=== PATIENT | male | born 1980 | race American Indian/Alaskan Native ===

== ENCOUNTER 2018-02-05 15:18 | Outpatient (CLI) | payer MEDICARE ==
[2018-02-05 15:32] LABS: Bilirubin,Urine NEG (Negative); Blood,Urine NEG (Negative); Color,Urine Yellow (Yellow); Protein,Urine <15 mg/dL mg/dL (Negative); Urobilinogen,Urine < 2.0 mg/dL (<2.0)
[2018-02-05 16:02] LABS: BUN/Creatinine Ratio 14; Blood Urea Nitrogen 13 mg/dL (9-20); Calcium 8.8 mg/dL (8.4-10.2); Hemolysis Index 5
== END 2018-02-05 15:19 | disposition home or self-care (01) ==
LOC: LAB 15:18
PROVIDERS: ATTEND Internal Medicine Nephrology
DX: Z48.22 Encounter for aftercare following kidney transplant (principal); Z94.0 Kidney transplant status; Z79.899 Other long term (current) drug therapy
CPT/HCPCS: 36415; 80048; 81001

== ENCOUNTER 2019-01-14 09:20 | Outpatient (CLI) | payer MEDICARE ==
[2019-01-14 10:04] LABS: Bilirubin,Urine NEG (Negative); Blood,Urine NEG (Negative); Color,Urine Yellow (Yellow); Mucus,Urine FEW /HPF; Protein,Urine <15 mg/dL mg/dL (Negative); Urobilinogen,Urine < 2.0 mg/dL (<2.0); WBC,Urine < 1.0 /HPF (0.0-6.0)
[2019-01-14 10:18] LABS: Basophils # (Auto) 0.1 K/mm3 (0.0-0.1); Basophils % (Auto) 0.9 % (0.0-1.8); Eosinophils # (Auto) 0.2 K/mm3 (0.0-0.4); Eosinophils % (Auto) 2.4 % (0.0-4.3); Hematocrit 44.7 % (35.5-45.6); Hemoglobin 15.1 gm/dl (11.8-15.2); Lymphocytes # (Auto) 1.9 K/mm3 (1.2-5.4); Mean Corpuscular HGB Conc 34 % (32-34); Mean Corpuscular Volume 84 fl (84-94); Monocytes # (Auto) 0.8 K/mm3 (0.0-0.8); Monocytes % (Auto) 12.3 % (0.0-7.3); Platelet Count 175 K/mm3 (140-440); Red Blood Count 5.35 M/mm3 (3.65-5.03); Red Cell Distribution Width 13.6 % (13.2-15.2)
[2019-01-14 10:29] LABS: Albumin 3.6 g/dL (3.9-5); BUN/Creatinine Ratio 12; Blood Urea Nitrogen 17 mg/dL (9-20); Calcium 9.1 mg/dL (8.4-10.2); Hemolysis Index 6; LDL Cholesterol,Direct 163 mg/dL (50-130); Uric Acid 5.7 mg/dL (3.5-7.6)
[2019-01-14 10:59] LABS: Chol/HDL Ratio 5.11 %; HDL Cholesterol 43 mg/dL (40-59)
[2019-01-14 13:06] LABS: Creatinine,Urine 173.3 mg/dL (0.1-20.0); Protein/Creatinine Ratio,Urine 0.08
== END 2019-01-14 09:21 | disposition home or self-care (01) ==
LOC: LAB 09:20
PROVIDERS: ATTEND Internal Medicine Nephrology
DX: N25.89 Other disorders resulting from impaired renal tubular function (principal); E78.00 Pure hypercholesterolemia, unspecified; J45.909 Unspecified asthma, uncomplicated; I12.0 Hypertensive chronic kidney disease with stage 5 chronic kidney disease or end stage renal disease; N18.6 End stage renal disease; Z94.0 Kidney transplant status; Z79.899 Other long term (current) drug therapy
CPT/HCPCS: 36415; 80048; 80061; 80197; 81001; 82040; 82570; 83036; 83735; 83970; 84100; 84156; 84550; 85025

== ENCOUNTER 2020-03-31 11:57 | Outpatient (CLI) | payer MEDICARE ==
[2020-03-31 12:42] LABS: Hematocrit 45.1 % (35.5-45.6); Hemoglobin 14.6 gm/dl (11.8-15.2); Mean Corpuscular HGB Conc 32 % (32-34); Mean Corpuscular Volume 85 fl (84-94); Platelet Count 161 K/mm3 (140-440); Red Blood Count 5.31 M/mm3 (3.65-5.03)
[2020-03-31 13:05] LABS: Alanine Aminotransferase 22 units/L (7-56); Albumin 3.7 g/dL (3.9-5); BUN/Creatinine Ratio 9; Blood Urea Nitrogen 12 mg/dL (9-20); Calcium 8.7 mg/dL (8.4-10.2); Chol/HDL Ratio 5.79 %; HDL Cholesterol 44 mg/dL (40-59); Hemolysis Index 4; LDL Cholesterol,Direct 186 mg/dL (50-130)
[2020-03-31 13:36] LABS: Free T4 (Free Thyroxine) 1.14 ng/dL (0.76-1.46)
== END 2020-03-31 11:58 | disposition home or self-care (01) ==
LOC: LAB 11:57
PROVIDERS: ATTEND Specialist
DX: E11.9 Type 2 diabetes mellitus without complications (principal); E78.2 Mixed hyperlipidemia
CPT/HCPCS: 36415; 80053; 80061; 83036; 84439; 84443; 85027

== ENCOUNTER 2020-04-06 13:59 | Outpatient (CLI) | payer MEDICARE ==
[2020-04-06 14:41] LABS: Hematocrit 45.5 % (35.5-45.6); Hemoglobin 14.7 gm/dl (11.8-15.2); Mean Corpuscular HGB Conc 32 % (32-34); Mean Corpuscular Volume 84 fl (84-94); Platelet Count 193 K/mm3 (140-440); Red Blood Count 5.39 M/mm3 (3.65-5.03); Red Cell Distribution Width 13.8 % (13.2-15.2)
[2020-04-06 15:13] LABS: Alanine Aminotransferase 17 units/L (7-56); Albumin 3.8 g/dL (3.9-5); BUN/Creatinine Ratio 11; Blood Urea Nitrogen 16 mg/dL (9-20); Calcium 9.1 mg/dL (8.4-10.2); Chol/HDL Ratio 5.34 %; HDL Cholesterol 43 mg/dL (40-59); Hemolysis Index 10; LDL Cholesterol,Direct 157 mg/dL (50-130)
== END 2020-04-06 14:00 | disposition home or self-care (01) ==
LOC: LAB 13:59
PROVIDERS: ATTEND Specialist
DX: E11.9 Type 2 diabetes mellitus without complications (principal); E78.2 Mixed hyperlipidemia
CPT/HCPCS: 36415; 80053; 80061; 80197; 82306; 83036; 83970; 84439; 84443; 85027

== ENCOUNTER 2020-09-18 11:51 | Outpatient (CLI) | payer MEDICARE ==
[2020-09-18 12:20] LABS: Basophils % (Auto) 0.7 % (0.0-1.8); Eosinophils # (Auto) 0.1 K/mm3 (0.0-0.4); Eosinophils % (Auto) 1.3 % (0.0-4.3); Hematocrit 44.8 % (35.5-45.6); Hemoglobin 14.4 gm/dl (11.8-15.2); Lymphocytes # (Auto) 2.2 K/mm3 (1.2-5.4); Lymphocytes % (Auto) 29.8 % (13.4-35.0); Mean Corpuscular HGB Conc 32 % (32-34); Mean Corpuscular Volume 85 fl (84-94); Monocytes # (Auto) 0.8 K/mm3 (0.0-0.8); Monocytes % (Auto) 11.5 % (0.0-7.3); Platelet Count 210 K/mm3 (140-440); Red Blood Count 5.26 M/mm3 (3.65-5.03); Red Cell Distribution Width 14.1 % (13.2-15.2)
[2020-09-18 12:43] LABS: Alanine Aminotransferase 20 units/L (7-56); Albumin 3.8 g/dL (3.9-5); BUN/Creatinine Ratio 9; Blood Urea Nitrogen 12 mg/dL (9-20); Chol/HDL Ratio 4.01 %; HDL Cholesterol 51 mg/dL (40-59); Hemolysis Index 11; LDL Cholesterol,Direct 144 mg/dL (50-130)
[2020-09-18 13:44] LABS: Color,Urine Yellow (Yellow)
[2020-09-18 13:45] LABS: Bilirubin,Urine NEG (Negative); Blood,Urine NEG (Negative); Mucus,Urine 1+ /HPF; Protein,Urine <15 mg/dL mg/dL (Negative); RBC,Urine < 1.0 /HPF (0.0-6.0); Urobilinogen,Urine < 2.0 mg/dL (<2.0)
== END 2020-09-18 11:52 | disposition home or self-care (01) ==
LOC: LAB 11:51
PROVIDERS: ATTEND Internal Medicine Nephrology
DX: N18.9 Chronic kidney disease, unspecified (principal); N25.89 Other disorders resulting from impaired renal tubular function; Z94.83 Pancreas transplant status; Z79.899 Other long term (current) drug therapy; Z94.0 Kidney transplant status
CPT/HCPCS: 36415; 80053; 80061; 80197; 81001; 83735; 84100; 85025; 87086

== ENCOUNTER 2021-05-19 12:02 | Emergency (ER) | payer MEDICARE ==
[2021-05-19 12:22] VITALS: BP 103/61
[2021-05-19] MEDS ORDERED: dexAMETHasone 20 MG/5 ML VIAL IM ONE (12:48)
--- NOTE | 2021-05-19 12:48 | Emergency Department Report ---
ED ENT HPI - General Chief complaint: Dental/Oral Stated complaint: SWOLLEN GUMS AND TONSILS Time Seen by Provider: 05/19/21 12:27 Source: patient Mode of arrival: Ambulatory Limitations: No Limitations - History of Present Illness Initial comments: The patient was evaluated in the emergency department for symptoms described in the history of present illness. He/she was evaluated in the context of the global COVID-19 pandemic, which necessitated consideration that the patient might be at risk for infection with the virus that causes COVID-19. Inst itutional protocols and algorithms that pertain to the evaluation of patients at risk for COVID-19 are in a state of rapid change based on information released by regulatory bodies including the CDC and federal and state organizations. These policies and algorithms were followed during the patient's care in the emergency department. Please note that these policies, procedures and recommendations changed on a rapid basis. 41-year-old -[place] male presents to the emergency room for a 2-day history of right upper jaw pain and swelling. Patient states that he was told that he he needed surgery on his mouth but not able to afford it. Patient comes in now with having swelling to his gum and throat. Patient states he has pain and pain when he swallows. Patient states he has been taken Tylenol but denies any fever. He does report a past medical history of a kidney transplant x2 and is currently on immunosuppressive medications. Patient denies any fever no chills no nausea no vomiting states that his mouth hurts when he opens it wide and is noticed mild muffling of his voice. Patient states he is able to swallow denies any shortness of breath. MD complaint: tooth pain Onset/Timin Severity scale (0 -10): 8 Quality: aching Consistency: constant Improves with: none Worsens with: swallowing Context- Dental: history of dental caries, poor dental care Associated Symptoms: gum swelling, toothache, pain with swallowing. denies: fever, cough - Related Data Home Medications Medication Instructions Recorded Confirmed Last Taken Mycophenolate [Cellcept] 500 mg PO BID 04/27/17 04/27/17 04/26/17 Prednisone 10 mg PO DAILY 04/28/17 04/28/17 Unknown Tacrolimus 1 mg PO QPM 04/28/17 04/28/17 Unknown Tacrolimus 2 mg PO QAM 04/28/17 04/28/17 Unknown Previous Rx's Medication Instructions Recorded Last Taken Type HYDROcodone/APAP 7.5-325 [[place] 1 each PO Q6HR PRN #25 tablet 02/22/14 Unknown Rx 7.5-325 mg TAB] Acetaminophen [Acetaminophen TAB] 325 mg PO Q4H PRN #15 tablet 05/05/17 Unknown Rx AtorvaSTATin [Lipitor] 40 mg PO QHS #30 05/05/17 04/26/17 Rx Insulin Detemir [Levemir VIAL] 10 unit SQ QHS #30 day 05/05/17 04/26/17 Rx Insulin Lispro [HumaLOG VIAL] 1 dose SQ AC #30 day 05/05/17 Unknown Rx Metoprolol [Lopressor TAB] 100 mg PO BID #60 tablet 05/05/17 Unknown Rx Penicillin Vk [Veetids TAB] 500 mg PO QID #14 day 05/05/17 Unknown Rx Warfarin [Coumadin] 5 mg PO DAILY@1700 #30 tablet 05/05/17 Unknown Rx amLODIPine 10 mg PO DAILY #30 05/05/17 04/26/17 Rx Clindamycin [Clindamycin CAP] 300 mg PO Q8H 10 Days #30 cap 05/19/21 Unknown Rx traMADoL [Ultram 50 MG tab] 50 mg PO Q4HR PRN #15 tablet 05/19/21 Unknown Rx Allergies Allergy/AdvReac Type Severity Reaction Status Date / Time No Known Allergies Allergy Unverified 02/22/14 10:52 ED Dental HPI - General Chief complaint: Dental/Oral Stated complaint: SWOLLEN GUMS AND TONSILS Time Seen by Provider: 05/19/21 12:27 Source: patient Mode of arrival: Ambulatory Limitations: No Limitations - Related Data Home Medications Medication Instructions Recorded Confirmed Last Taken Mycophenolate [Cellcept] 500 mg PO BID 04/27/17 04/27/17 04/26/17 Prednisone 10 mg PO DAILY 04/28/17 04/28/17 Unknown Tacrolimus 1 mg PO QPM 04/28/17 04/28/17 Unknown Tacrolimus 2 mg PO QAM 04/28/17 04/28/17 Unknown Previous Rx's Medication Instructions Recorded Last Taken Type HYDROcodone/APAP 7.5-325 [[place] 1 each PO Q6HR PRN #25 tablet 02/22/14 Unknown Rx 7.5-325 mg TAB] Acetaminophen [Acetaminophen TAB] 325 mg PO Q4H PRN #15 tablet 05/05/17 Unknown Rx AtorvaSTATin [Lipitor] 40 mg PO QHS #30 05/05/17 04/26/17 Rx Insulin Detemir [Levemir VIAL] 10 unit SQ QHS #30 day 05/05/17 04/26/17 Rx Insulin Lispro [HumaLOG VIAL] 1 dose SQ AC #30 day 05/05/17 Unknown Rx Metoprolol [Lopressor TAB] 100 mg PO BID #60 tablet 05/05/17 Unknown Rx Penicillin Vk [Veetids TAB] 500 mg PO QID #14 day 05/05/17 Unknown Rx Warfarin [Coumadin] 5 mg PO DAILY@1700 #30 tablet 05/05/17 Unknown Rx amLODIPine 10 mg PO DAILY #30 05/05/17 04/26/17 Rx Clindamycin [Clindamycin CAP] 300 mg PO Q8H 10 Days #30 cap 05/19/21 Unknown Rx traMADoL [Ultram 50 MG tab] 50 mg PO Q4HR PRN #15 tablet 05/19/21 Unknown Rx Allergies Allergy/AdvReac Type Severity Reaction Status Date / Time No Known Allergies Allergy Unverified 02/22/14 10:52 ED Review of Systems ROS: Stated complaint: SWOLLEN GUMS AND TONSILS Other details as noted in HPI Comment: All other systems reviewed and negative ED Past Medical Hx - Past Medical History Hx Hypertension: Yes Hx Heart Attack/AMI: No Hx Congestive Heart Failure: No Hx Diabetes: Yes Hx Deep Vein Thrombosis: No Hx Pulmonary Embolism: No Hx Liver Disease: No Hx Renal Disease: Yes Hx Sickle Cell Disease: No Hx Arthritis: No Hx Kidney Stones: Yes Hx Asthma: Yes Hx COPD: No Hx Tuberculosis: No Hx HIV: No Additional medical history: kidney transplant. scoleosis - Surgical History Hx Coronary Stent: No Hx Open Heart Surgery: No Hx Pacemaker: No Hx Internal Defibrillator: No Hx Cholecystectomy: No Hx Appendectomy: No Hx Breast Surgery: No Additional Surgical History: kidney transplant. back surgery - Social History Smoking Status: Never Smoker - Medications Home Medications: Home Medications Medication Instructions Recorded Confirmed Last Taken Type HYDROcodone/APAP 7.5-325 [[place] 1 each PO Q6HR PRN #25 tablet 02/22/14 04/27/17 Unknown Rx 7.5-325 mg TAB] Mycophenolate [Cellcept] 500 mg PO BID 09/06/0304/27/17 04/26/17 History Prednisone 10 mg PO DAILY 04/28/17 04/28/17 Unknown History Tacrolimus 1 mg PO QPM 04/28/17 04/28/17 Unknown History Tacrolimus 2 mg PO QAM 04/28/17 04/28/17 Unknown History Acetaminophen [Acetaminophen TAB] 325 mg PO Q4H PRN #15 tablet 05/05/17 Unknown Rx AtorvaSTATin [Lipitor] 40 mg PO QHS #30 05/05/17 04/27/17 04/26/17 Rx Insulin Detemir [Levemir VIAL] 10 unit SQ QHS #30 day 05/05/17 04/27/17 04/26/17 Rx Insulin Lispro [HumaLOG VIAL] 1 dose SQ AC #30 day 05/05/17 Unknown Rx Metoprolol [Lopressor TAB] 100 mg PO BID #60 tablet 05/05/17 Unknown Rx Penicillin Vk [Veetids TAB] 500 mg PO QID #14 day 05/05/17 Unknown Rx Warfarin [Coumadin] 5 mg PO DAILY@1700 #30 tablet 05/05/17 Unknown Rx amLODIPine 10 mg PO DAILY #30 05/05/17 04/27/17 04/26/17 Rx Clindamycin [Clindamycin CAP] 300 mg PO Q8H 10 Days #30 cap 05/19/21 Unknown Rx traMADoL [Ultram 50 MG tab] 50 mg PO Q4HR PRN #15 tablet 05/19/21 Unknown Rx ED Physical Exam - General Limitations: No Limitations General appearance: alert - Head Head exam: Present: atraumatic, normocephalic - Eye Eye exam: Present: normal appearance - Expanded ENT Exam Expanded Mouth exam: Present: trismus, muffled voice Teeth exam: Present: dental caries, dental tenderness #, gingival enlargement - Neck Neck exam: Present: normal inspection, full ROM - Respiratory Respiratory exam: Present: normal lung sounds bilaterally. Absent: accessory muscle use - Cardiovascular Cardiovascular Exam: Present: regular rate - Extremities Exam Extremities exam: Present: normal inspection - Back Exam Back exam: Present: normal inspection - Neurological Exam Neurological exam: Present: alert, oriented X3, normal gait - Psychiatric Psychiatric exam: Present: normal affect, normal mood - Skin Skin exam: Present: warm, dry, intact, normal color. Absent: rash ED Course Vital Signs 05/19/21 12:19 Temperature 99.8 F H Pulse Rate 95 H Respiratory 16 Rate Blood Pressure 103/61 [Left] O2 Sat by Pulse 99 Oximetry ED Medical Decision Making - Medical Decision Making 41-year-old -[place] male presents to the emergency room for a 2-day history of right upper jaw pain and swelling. Patient states that he was told that he he needed surgery on his mouth but not able to afford it. Patient comes in now with having swelling to his gum and throat. Patient states he has pain and pain when he swallows. Patient states he has been taken Tylenol but denies any fever. He does report a past medical history of a kidney transplant x2 and is currently on immunosuppressive medications. Patient denies any fever no chills no nausea no vomiting states that his mouth hurts when he opens it wide and is noticed mild muffling of his voice. Patient states he is able to swallow denies any shortness of breath. Dr. Arianne Gregorio evaluated patient as well recommends steroid injection clindamycin and close follow-up with a dentist. We both discussed with patient when to return back to the emergency room. Discussed with patient that he has any worsening of his mouth difficulty swallowing shortness of breath fever to return back to the emergency room immediately. We did discuss with patient that is very important for him to follow-up with an dentist as this is continue to happen. Without correcting the problem. Critical care attestation.: If time is entered above; I have spent that time in minutes in the direct care of this critically ill patient, excluding procedure time. ED Disposition Clinical Impression: Dental abscess Disposition: HOME / SELF CARE / HOMELESS Is pt being admited?: No Does the pt Need Aspirin: No Condition: Stable Instructions: Dental Abscess, [id number] Additional Instructions: Very important for you to complete your antibiotics as prescribed pain medication as needed. Follow-up with a dentist in the next 48 h. Increase your fluid intake venture diet as tolerated. Return back to emergency room if your symptoms get worse. Prescriptions: Clindamycin [Clindamycin CAP] 300 mg PO Q8H 10 Days #30 cap traMADoL [Ultram 50 MG tab] 50 mg PO Q4HR PRN #15 tablet PRN Reason: Pain Referrals: [facility] [Outside] - 3-5 Days [facility] [Outside] - 3-5 Days [facility] [Outside] - 3-5 Days [facility] [Outside] - 3-5 Days Forms: Work/School Release Form(ED) Time of Disposition: 13:16
== END 2021-05-19 14:22 | disposition home or self-care (01) ==
LOC: ED 12:02
DX: K04.7 Periapical abscess without sinus (principal); J45.909 Unspecified asthma, uncomplicated; I10 Essential (primary) hypertension
CPT/HCPCS: 96372; 99282; J1100

== ENCOUNTER 2021-11-26 13:14 | Outpatient (CLI) | payer MEDICARE ==
[2021-11-26 14:01] LABS: Basophils # (Auto) 0.1 K/mm3 (0.0-0.1); Basophils % (Auto) 1.1 % (0.0-1.8); Eosinophils # (Auto) 0.1 K/mm3 (0.0-0.4); Eosinophils % (Auto) 1.8 % (0.0-4.3); Hematocrit 46.3 % (35.5-45.6); Hemoglobin 14.8 gm/dl (11.8-15.2); Lymphocytes # (Auto) 1.5 K/mm3 (1.2-5.4); Lymphocytes % (Auto) 30.7 % (13.4-35.0); Mean Corpuscular HGB Conc 32 % (32-34); Mean Corpuscular Volume 84 fl (84-94); Monocytes # (Auto) 0.7 K/mm3 (0.0-0.8); Monocytes % (Auto) 13.4 % (0.0-7.3); Platelet Count 171 K/mm3 (140-440); Red Blood Count 5.48 M/mm3 (3.65-5.03); Red Cell Distribution Width 13.8 % (13.2-15.2)
[2021-11-26 14:09] LABS: Bilirubin,Urine NEG (Negative); Blood,Urine NEG (Negative); Color,Urine Yellow (Yellow); Mucus,Urine FEW /HPF; Protein,Urine <15 mg/dL mg/dL (Negative); Urobilinogen,Urine < 2.0 mg/dL (<2.0)
[2021-11-26 14:22] LABS: Alanine Aminotransferase 24 units/L (7-56); Albumin 3.9 g/dL (3.9-5); BUN/Creatinine Ratio 9; Blood Urea Nitrogen 11 mg/dL (9-20); Calcium 9.7 mg/dL (8.4-10.2); Hemolysis Index 38
[2021-11-26 15:41] LABS: Microalbumin/Creatinine Ratio 5.2 ug/mg; Protein/Creatinine Ratio,Urine 0.06
== END 2021-11-26 13:15 | disposition home or self-care (01) ==
LOC: LAB 13:14
PROVIDERS: ATTEND Internal Medicine Nephrology
DX: Z79.899 Other long term (current) drug therapy (principal); Z94.0 Kidney transplant status
CPT/HCPCS: 36415; 80053; 80197; 81001; 82043; 82306; 82570; 83970; 84156; 85025